=== PATIENT | male | born 1980 | race African-American/Black ===

== ENCOUNTER 2023-12-21 21:02 | Emergency (ER) | payer SELFPAY, OTHER ==
[~2023-12-21 21:02] MED LIST: Iopamidol-370 76% 500 ML MDV (1 ML CHARGE) ONE
[2023-12-21] MEDS ORDERED: Sodium Chloride 0.9% 100 ML ONE (21:08)
[2023-12-21] MEDS ORDERED: CEFAZOLIN 2 GM VIAL ONE (21:08)
[2023-12-21] MEDS ORDERED: fentaNYL 50 mcg/mL 1 mL Vial ONE (21:16)
[2023-12-21 21:21] LABS: Hematocrit 42.1 % (42.0-52.0); Hemoglobin 13.4 g/dL (14.0-18.0); Mean Corpuscular HGB CONC 31.8 g/dL (32.0-36.0); Mean Corpuscular Hemoglobin 27.8 pg (27.0-31.0); Mean Corpuscular Volume 87.3 fL (78.0-98.0); Mean Platelet Volume 10.9 fL (7.4-10.4); Platelet Count 218 10x3/uL (130-400); RBC Distribution Width 12.7 % (11.5-14.5); Red Blood Cell (RBC) Count 4.82 mill/uL (4.70-6.10)
[2023-12-21 21:33] LABS: PTT 23.5 sec (22.9-36.1)
[2023-12-21 21:39] LABS: ALT (SGPT) 14 U/L (8-55); AST (SGOT) 23 U/L (5-34); Albumin 4.1 g/dL (3.5-5.0); Alkaline Phosphatase 67 U/L (40-110); Anion Gap 14 mmol/L (10-20); BUN (Urea Nitrogen) 11 mg/dL (8.9-20.6); Bilirubin, Total 0.3 mg/dL (0.2-1.2); Calc. Creatinine Clearance 0 mL/min (70-130); Calcium 9.1 mg/dL (7.8-10.44); Carbon Dioxide 24 mmol/L (22-29); Chloride 106 mmol/L (98-107); Estimated GFR 67; Globulin 3.5 g/dL (2.4-3.5); Glucose 117 mg/dL (70-105); Lipase 32 U/L (8-78); Potassium 2.7 mmol/L (3.5-5.1); Protein, Total 7.6 g/dL (6.0-8.3); Sodium 141 mmol/L (136-145)
[2023-12-21 21:40] LABS: Large Platelets 5.9 % (0-5); Lymphocytes 41 % (21-51); Monocytes 16 % (0-10); Neutrophil 38 % (42-75); Platelet Adequacy Comment Platelets Normal; Reactive Lymphocytes 6 % (0-10); Smudge Cells 23.8 %
[2023-12-21] MEDS ORDERED: NS 0.9% w/ 20 MEQ KCL 1,000 ML ONE (22:59)
[2023-12-21] MEDS ORDERED: Morphine 4 MG/ML VIAL ONE (23:05)
[2023-12-21] MEDS ORDERED: Lidocaine 1% w/Epinephrine 1:100K 20 ML VIAL ONE (23:05)
[2023-12-21] MEDS ORDERED: Morphine 2 MG/ML VIAL ONE (23:56)
[2023-12-22 01:07] LABS: Lactic Acid 1.26 mmol/L (0.5-2.2)
[2023-12-22 02:29] LABS: Bacteria/HPF None Seen HPF (None Seen); Bilirubin Negative (Negative); Blood, Urine Negative (Negative); CAUTI Indications for Culture Pelvic or flank pain; Clarity Clear (Clear); Glucose, Urine (Dipstick) Normal (Negative); Ketone, Urine Negative (Negative); Leukocyte Negative Leu/uL (Negative); Nitrite Negative (Negative); Protein, Urine (Dipstick) Negative (Neg-Trace); RBC/HPF None Seen HPF (0-3); Squamous Epithelial None Seen HPF (0-3); Urobilinogen Normal mg/dL (Less than 2); WBC/HPF 0-3 HPF (0-3)
[2023-12-22 02:30] LABS: Specific Gravity, Urine 1.048 (1.002-1.036); Urine Culture Reflex No No
[2023-12-22] MEDS ORDERED: Ondansetron PF 4 MG/2 ML Vial ONE (02:30)
[2023-12-22] MEDS ORDERED: Morphine 2 MG/ML VIAL ONE ×2 (03:11→03:57)
== END 2023-12-22 04:12 | disposition short-term general hospital (02) ==
LOC: ERS 21:02 → EDBD 21:02 → ERS 12-22 04:12
DX: S02.42XA Fracture of alveolus of maxilla, initial encounter for closed fracture (principal); S01.511A Laceration without foreign body of lip, initial encounter; S03.2XXA Dislocation of tooth, initial encounter; S60.512A Abrasion of left hand, initial encounter; S60.511A Abrasion of right hand, initial encounter; E87.6 Hypokalemia; M25.521 Pain in right elbow; M25.511 Pain in right shoulder; M25.561 Pain in right knee; V28.99XA Unspecified rider of other motorcycle injured in noncollision transport accident in traffic accident, initial encounter; Y93.89 Activity, other specified
CPT/HCPCS: 12013; 36415; 70450; 70486; 71260; 72125; 74177; 80053; 81001; 83605; 83690; 85025; 85610; 85730; 86850; 86900; 86901; 87040; 96365; 96366; 96367; 96375; 96376; G0390; J2272; J2405; J3010; J3480; Q9967

== ENCOUNTER 2023-12-22 18:39 | Emergency (ER) | payer OTHER, SELFPAY ==
[2023-12-22] MEDS ORDERED: Ketorolac Tromethamine 30 MG (1 mL) VIAL ONE (21:59)
[2023-12-22] MEDS ORDERED: HYDROcodone/Acetaminophen 10/325 mg Tablet ONE (22:00)
== END 2023-12-22 22:23 | disposition home or self-care (01) ==
LOC: ERS 18:39
DX: S80.01XA Contusion of right knee, initial encounter (principal); S40.011A Contusion of right shoulder, initial encounter; S70.01XA Contusion of right hip, initial encounter; V89.2XXA Person injured in unspecified motor-vehicle accident, traffic, initial encounter
CPT/HCPCS: 71045; 96372; J1885